=== PATIENT | male | born 1965 | race Hispanic/Latino ===

== ENCOUNTER 2017-09-21 17:24 | Inpatient (IN) | payer MEDICAID, OTHER ==
[2017-09-21 17:24] VITALS: BMI 35.3
[2017-09-21 18:20] LABS: BASO # 0.1 K/uL (0.0-0.2); BASO % 1.1 % (0.0-2.0); EOS # 0.1 K/uL (0.0-0.7); EOS % 1.1 % (0.0-4.0); HEMOGLOBIN 16.1 g/dL (12.0-18.0); LYMPH # 2.8 K/uL (1.0-4.3); LYMPH % 27.5 % (20.0-40.0); MEAN CELL VOLUME 90.8 fl (80.0-94.0); MEAN CORPUSCULAR HEMOGLOBIN 29.8 pg (27.0-31.0); MEAN CORPUSCULAR HGB CONC 32.9 g/dL (33.0-37.0); MEAN PLATELET VOLUME 8.9 fl (7.2-11.7); MONO # 0.9 K/uL (0.0-0.8); MONO % 9.3 % (0.0-10.0); NEUT # 6.2 K/uL (1.8-7.0); NRBC % 0.3 % (0.0-0.0); RBC 5.38 Mil/uL (4.40-5.90); RED CELL DISTRIBUTION WIDTH 13.9 % (11.5-14.5); WHITE BLOOD COUNT 10.1 K/uL (4.8-10.8)
[2017-09-21 18:26] LABS: SQUAMOUS EPITHIAL < 1 /hpf (0-5); URINE BACTERIA RARE (<OCC); URINE BILIRUBIN NEGATIVE (NEGATIVE); URINE BLOOD SMALL (NEGATIVE); URINE CLARITY CLEAR (Clear); URINE COLOR STRAW (YELLOW); URINE GLUCOSE (UA) NEG (Normal); URINE LEUKOCYTE ESTERASE NEG Leu/uL (Negative); URINE NITRATE NEGATIVE (NEGATIVE); URINE PROTEIN NEGATIVE (NEGATIVE); URINE UROBILINOGEN 0.2-1.0 mg/dL (0.2-1.0)
[2017-09-21 18:28] LABS: ALBUMIN 4.8 g/dL (3.5-5.0); ALT/SGPT 42 U/L (21-72); AST/SGOT 26 U/L (17-59); BLOOD UREA NITROGEN 25 mg/dl (9-20); CALCIUM 9.9 mg/dL (8.4-10.2); GFR AFRICAN-AMERICAN > 60; GFR NON-AFRICAN AMERICAN > 60
--- NOTE | 2017-09-21 18:40 | ED PDOC ---
HPI: Psych/Substance Abuse Time Seen by Provider: 09/21/17 17:30 Chief Complaint (Nursing): Psychiatric Evaluation Chief Complaint (Provider): Psychiatric Evaluation History Per: Patient History/Exam Limitations: clinical condition (profound psychiatric disease) Onset/Duration Of Symptoms: Days (x1) Current Symptoms Are (Timing): Still Present Additional History Per: Long-Term Additional Complaint(s): 51 year old male with a past medical history of bipolar disorder presents to the emergency department for psychiatric evaluation. Patient [facility] living in a [facility] for several years. Today he became upset and agitated after an argument with nursing staff, and threw food at them. In the ER patient reports feeling upset and depressed. Denies any physical complaint such as fever, cough, abdominal pain, or headache. PMD: Non H provider Past Medical History Reviewed: Historical Data, Nursing Documentation, Vital Signs Vital Signs: Last Vital Signs Temp 98.7 F 09/21/17 17:32 Pulse 100 H 09/21/17 17:32 Resp 16 09/21/17 17:32 BP 140/91 H 09/21/17 17:32 Pulse Ox 100 09/21/17 17:32 - Medical History PMH: Bipolar Disorder, Depression Denies: Anxiety, Diabetes, Hepatitis, HIV, HTN, Personality Disorder, Schizophrenia, Seizures, Sexually Transmitted Disease - Family History Family History: States: Hypertension - Social History Current smoker - smoking cessation education provided: Yes Alcohol: None Drugs: Denies - Immunization History Hx Tetanus Toxoid Vaccination: No Hx Influenza Vaccination: No Hx Pneumococcal Vaccination: No - Home Medications Home Medications: Ambulatory Orders Medication Instructions Recorded Ergocalciferol [Vitamin D2] 400 iu PO DAILY #0 tab 01/18/15 FLUoxetine [Prozac] 30 mg PO DAILY #0 cap 01/18/15 Nicotine 14 mg/24 hr [Nicotine 14 mg TD DAILY #0 patch 01/18/15 Transdermal System] hydrOXYzine Pamoate [Vistaril] 50 mg PO Q8 PRN #0 cap 01/18/15 traZODone [trazODONE HYDROCHLORIDE] 50 mg PO PRN PRN #0 tab 01/18/15 - Allergies Allergies/Adverse Reactions: Allergies Allergy/AdvReac Type Severity Reaction Status Date / Time No Known Allergies Allergy Verified 10/25/14 17:23 Review of Systems ROS Statement: Except As Marked, All Systems Reviewed And Found Negative Constitutional: Negative for: Fever Respiratory: Negative for: Cough Gastrointestinal: Negative for: Abdominal Pain Neurological: Negative for: Headache Psych: Positive for: Depression, Other (Hearing voices) Physical Exam - Reviewed Nursing Documentation Reviewed: Yes Vital Signs Reviewed: Yes - Physical Exam Appears: Positive for: Non-toxic, No Acute Distress Head Exam: Positive for: ATRAUMATIC, NORMAL INSPECTION, NORMOCEPHALIC Skin: Positive for: Normal Color, Warm, Dry Eye Exam: Positive for: EOMI, Normal appearance, PERRL Neck: Positive for: Normal, Painless ROM, Supple Cardiovascular/Chest: Positive for: Regular Rate, Rhythm. Negative for: Murmur Respiratory: Positive for: Normal Breath Sounds. Negative for: Accessory Muscle Use, Respiratory Distress Gastrointestinal/Abdominal: Positive for: Normal Exam, Soft. Negative for: Tenderness Extremity: Positive for: Normal ROM. Negative for: Pedal Edema, Deformity Neurologic/Psych: Positive for: Alert, Oriented, Mood/Affect (poor insight and cognition), Other (somewhat pressured speech) - Laboratory Results Result Diagrams: 09/21/17 19:07 09/21/17 18:07 - ECG O2 Sat by Pulse Oximetry: 100 (RA) Pulse Ox Interpretation: Normal Medical Decision Making Medical Decision Making: Time: 17:47 Initial Plan: Patient completed crisis evaluation, and meets criteria for inpatient psychiatric stabilization. Will obtain blood work and chest x-ray for medical clearance. 720p labs reviewed and clinically unremarkable CXR no acute infiltrate Medically stable for [facility] admission at this time Scribe Attestation: Documented by Joselin Ricketts, acting as a scribe for Ruy Noe III, DO Provider Scribe Attestation: All medical record entries made by the Scribe were at my direction and personally dictated by me. I have reviewed the chart and agree that the record accurately reflects my personal performance of the history, physical exam, medical decision making, and the department course for this patient. I have also personally directed, reviewed, and agree with the discharge instructions and disposition. Disposition - Clinical Impression Clinical Impression: Bipolar 1 disorder - Patient ED Disposition Is Patient to be Admitted: Yes Counseled Patient/Family Regarding: Studies Performed - Disposition Disposition Time: 19:20 Condition: STABLE Forms: Liquid Bronze (Persian) - Pt Status Changed To: Hospital Disposition Of: Inpatient - Admit Certification Admit to Inpatient:: After my assessment, the patient will require hospitalization for at least two midnights. This is because of the severity of symptoms shown, intensity of services needed, and/or the medical risk in this patient being treated as an outpatient. - POA Present On Arrival: None
[2017-09-21 18:42] LABS: ALB/GLOB RATIO 1.3 (1.0-2.1)
[2017-09-21 20:04] VITALS: O2SAT 97
[2017-09-21 20:07] LABS: PARTIAL THROMBOPLASTIN TIME 39.8 Seconds (25.6-37.1); PROTHROMBIN TIME 11.6 Seconds (9.8-13.1)
[2017-09-21] MEDS ORDERED: Alum-Mag Hydrox-Simethicone Susp (30 mL) PO PRN (20:19)
[2017-09-21] MEDS ORDERED: Magnesium Hydroxide Susp 30 ml UD PO PRN (20:19)
[2017-09-21] MEDS ORDERED: DiphenhydrAMINE 50 mg/ml Inj IM PRN (20:19)
[2017-09-21] MEDS ORDERED: Bismuth Subsalicylate 262 mg/15 ml Sus (240 ml) PO PRN (20:20)
[2017-09-21 20:31] LABS: BARBITURATES, UR NEGATIVE (NEGATIVE); BENZODIAZEPINES, UR NEGATIVE (NEGATIVE); OPIATES, UR NEGATIVE (NEGATIVE); PHENCYCLIDINE, UR NEGATIVE (NEGATIVE)
--- NOTE | 2017-09-22 02:59 | PCM.BM ---
<Rboert Fernandez P - Last Filed: 09/22/17 02:57> Treatment Plan Problems - Problems identified on initial assessmt Agitated/aggressive behavior Date Initiated: 09/21/17 Time Initiated: 20:45 Assessment reference: NA Status: Active Treatment assets and liabiliti Patient Assests: cooperative, physically healthy, negotiates basic needs Patient Liabilities: medical problems - Milieu Protocol Maintain good personal hygiene: daily Encourage regular showers, daily Remind patient to perform daily oral care Conduct patient checks and document Observation sheet: Q15 minutes Maintain personal safety: every shift Educate patient to report safety concerns to staff, every shift Monitor environment for contraband/sharps Medication safety: Monitor for expected outcome, potential side effects: every shift, Assess barriers to learning: every shift, Assess readiness for medication education: every shift <Deborah Ferrara - Last Filed: 09/22/17 10:40> - Diagnosis (1) Schizoaffective disorder Status: Acute Interventions: Medication management, Psychoeducation, Individual and group therapy 09/22/17 10:40 <Suzan Parks M - Last Filed: 09/22/17 14:00> Family Contact Family contact: Patient agrees to contact, Telephone contact initiated by staff Family contact name: Mrs. Haley ( Sister) Family contacted how many times per week?: 2 Family contact comment: [phone] - Outside [facility] Care involvment: Information-sharing Agency contact name: Dr. Caron MD and Dr. Kasey Yancey, Ph.D Agency contact number: [phone] - Goals for Treatment Patient goals for treatment: Pt to be encouraged to attend activity and clinical groups 3-5x per week to identify at least 2 contributing factors to increased agitation, irritability, and aggression. Psycho-education to be provided to patient/family regarding benefits of medications and treatment adherence. Pt to be encouraged to participate in group milieu to develop effective coping skills to reduce aggression and reduce psychiatric hospitalizations. Coordinate discharge resource needs by providing referral for psychiatric treatment follow up in the community. Discharge/Continuing Care - Education Needs Education Needs: Family Medication, Family Diagnosis/Disease Process, Family Coping Skills, Family Anger Management skills, Family Community resources, Family Nutrition, Family Uses of Medical Equipment, Family Personal Hygiene/ Grooming, Family Aftercare Safety Plan, Patient Medication, Patient Diagnosis/ Disease Process, Patient Coping Skills, Patient Anger Management skills, Patient Community resources, Patient Nutrition, Patient Uses of Medical Equipment, Patient Personal Hygiene/Grooming, Patient Aftercare Safety Plan - Discharge Discharge Criteria: Tolerates medication w/o severe side effects, Free of agitation, Normal sleep pattern, Ability to care for self, Reduction of target symptoms Discharge to:: Shelter - Additional Comments 09/22/17 13:59 Pt seen and discussed in team meeting. Reason for admission reviewed and discussed. Pt's social and medical issues reviewed and discussed. Pt's medications reviewed. Pt provided data analyst report writer with verbal authorization to contact his sister, Mrs. Haley for collateral information. tx plan reviewed and pt verbalized understanding and agreement. SW to continue to follow case. - Treatment Team Participation Discussed with Family/SO: No (Will be informed via telephone) Was Patient/Family/SO present at Treatment Team Meeting: Yes
[2017-09-22] MEDS: Multivitamin With Minerals Tab PO SCH (08:47)
[2017-09-22] MEDS ORDERED: MULTIVITAMIN THERAPEUTIC PO SCH (09:00)
--- NOTE | 2017-09-22 10:14 | RAD ---
HISTORY: r/o infiltrate COMPARISON: No prior. FINDINGS: LUNGS: No active pulmonary disease. PLEURA: No significant pleural effusion identified, no pneumothorax apparent. CARDIOVASCULAR: Normal. OSSEOUS STRUCTURES: Thoracic spondylosis. Prominent anterior coastocartilaginous junctional calcifications -1st rib VISUALIZED UPPER ABDOMEN: Normal. OTHER FINDINGS: None. IMPRESSION: No infiltrate perceived
--- NOTE | 2017-09-22 10:43 | PCM.PSYCH ---
Initial Psychiatric Evaluation - Initial Psychiatric Evaluation Type of Admission: Voluntary Legal Status: Capacity Chief Complaint (in patient's own words): "I got into an altercation." Patient's Reaction to Hospitalization: 51 yo male w/ h/o schizoaffective disorder, sent from [facility] for worsening agitation and aggression. As per [facility], patient was verbally aggressive towards staff and other patients, escalated and threw a banana at a nurse. residential staff also reports that the patient has been increasing paranoid, believing that he is not receiving good care because of his race. At the time of the evaluation, patient is calm and cooperative. He acknowledges that her became aggressive and states that he becomes irritable at times. He denies currently feeling depressed or anxious. Denies acute AH/VH/SI/HI. PPHx: History of multiple past psychiatric admissions, including [facility] and [place]. Currently in tx w/ Dr. Reardon and Dr. Yancey. On Prozac 20 mg PO Daily and Risperdal 0.5 mg PO Q12. 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 Denies drugs/etoh. Smokes 6 cig/ day (refused smoking cessation from marine underwriter). Current Medications: Active Medications Generic Name Dose Route Start Last Admin Trade Name Freq PRN Reason Stop Dose Admin Acetaminophen 650 mg 09/21/17 20:19 Tylenol 325mg Tab PO Q4 PRN pain level 4-7 Al Hydrox/Mg Hydrox/Simethicone 30 ml 09/21/17 20:19 Maalox Plus 30 Ml PO Q4 PRN Dyspepsia Atorvastatin Calcium 20 mg 09/21/17 22:00 09/21/17 21:20 Lipitor PO 20 mg HS MARTA Administration Bacitracin 1 applic 09/22/17 09:00 Bacitracin Oint TOP BID MARTA Bismuth Subsalicylate 524 mg 09/21/17 20:20 Pepto-Bismol PO Q4 PRN Diarrhea Diphenhydramine HCl 50 mg 09/21/17 20:19 Benadryl IM Q6 PRN Extrapyramidal S/S Unable PO Diphenhydramine HCl 50 mg 09/21/17 20:19 Benadryl PO Q6 PRN Extrapyramidal Symptoms Diphenhydramine HCl 50 mg 09/21/17 20:20 Benadryl PO HS PRN Sleep Fluoxetine HCl 20 mg 09/22/17 09:00 09/22/17 08:46 Prozac PO 20 mg DAILY MARTA Administration Haloperidol 5 mg 09/21/17 20:19 Haldol PO Q4 PRN Agitation Haloperidol Lactate 5 mg 09/21/17 20:19 Haldol IM Q4 PRN Agitation, Unable to Take PO Ibuprofen 400 mg 09/21/17 20:53 Motrin Tab PO Q6 PRN moderate pain level 7-10 Lorazepam 2 mg 09/21/17 20:19 Ativan IM Q4 PRN Anxiety/Agitation,Unable PO Lorazepam 2 mg 09/21/17 20:19 Ativan PO Q4 PRN Anxiety/Agitation Magnesium Hydroxide 30 ml 09/21/17 20:19 Milk Of Magnesia PO HS PRN Constipation Multivitamins/Minerals 1 tab 09/22/17 09:00 09/22/17 08:47 Therapeutic-M Tab PO 1 tab DAILY MARTA Administration Risperidone 0.5 mg 09/23/17 09:00 Risperdal Tab PO DAILY MARTA Risperidone 1 mg 09/22/17 22:00 Risperdal Tab PO HS MARTA Past Psychiatric History - Past Psychiatric History Previous Treatment History: Inpatient Pertinent Medical Hx (Current Medical&Sleep Prob, Allergies): Allergies Allergy/AdvReac Type Severity Reaction Status Date / Time No Known Allergies Allergy Verified 10/25/14 17:23 Atorvastatin [Lipitor] 20 mg PO HS 09/21/17 Bacitracin Ointment [Bacitracin] 1 appl TOP BID 09/21/17 FLUoxetine [Prozac] 20 mg PO DAILY 09/21/17 Ibuprofen [Motrin Tab] 400 mg PO Q6 PRN 09/21/17 Multivitamin Therapeutic Tab [Thera Tab] 1 tab PO DAILY 09/21/17 Risperidone [Risperdal] 0.5 mg PO BID 09/21/17 Review of Systems - Psychiatric Psychiatric: As Per HPI, Irritability, Mood Swings, Paranoia Mental Status Examination - Personal Presentation Personal Presentation: Looks stated age - Affect Affect: Constricted - Motor Activity Motor Activity: Calm - Reliability in Providing Information Reliability in Providing Information: Fair - Speech Speech: Coherent - Mood Mood: Neutral - Formal Thought Process Formal Thought Process: Paranoia - Hallucinations/Delusions Additional comments: No AH/VH - Obsessions/Compulsions Obsessions: No Compulsions: No - Cognitive Functions Orientation: Person, Place, Situation, Time Sensorium: Alert Judgement: Intact, as evidence by: Insight regarding need for hospitalization Memory: Recent intact, as evidence by: Ability to recall events of the day - Risk Risk: Other (Aggression) - Strength & Assets Inventory Strength & Assets Inventory: Cooperative DSM 5 DX - DSM 5 DSM 5 Diagnosis: Schizoaffective Disorder - Recommended/Plan of Treatment Treatment Recommendations and Plan of Treatment: Schizoaffective disorder; patient needs acute hospitalization for treatment and safety. -Admit to psychiatry unit -Individual and group therapy -Podiatry consult for R foot ulcer -Medicine consult -Increase Risperdal to 0.5 mg PO AM/ 1 mg PO HS; will titrate as clinically appropriate -Continue Prozac 20 mg PO Daily -Disposition planning -Patient declined smoking cessation treatment Projected ELOS: 3-7 days Discharge Plan and Discharge Criteria: Discharge the patient when he is psychiatrically stable - Smoking Cessation Smoking Cessation Initiated: No Reason for not providing: Patient declined
--- NOTE | 2017-09-22 12:19 | CARD ---
APPROVED REPORT EKG Measurement Heart [id number] <Conclusion> Normal sinus rhythm Incomplete right bundle branch block Borderline ECG
[2017-09-22] MEDS: Bacitracin OINT 15GM TOP SCH (21:17)
[2017-09-23] MEDS: Multivitamin With Minerals Tab PO SCH (08:36)
[2017-09-23] MEDS: Bacitracin OINT 15GM TOP SCH ×2 (08:38→17:40)
--- NOTE | 2017-09-23 08:52 | CP.PCM.CON ---
History of Present Illness - History of Present Illness History of Present Illness: 51 y/o male seen at bedside in psych unit for podiatric consultation of right foot diabetic ulcer. Patient states he was diagnosed with diabetes 1 year ago and has been working hard to control it since. States he noticed this ulceration four months ago, initially beginning as a callus. States he is seen regularly by a operator weapon locating radar at [facility] where he resides. Admits to pain in the ulcer when he applies pressure/walks on it. Denies any history of other foot ulcerations or foot infections. States he has never taken antibiotics for this ulcer. Denies seeing any pus or having any foot swelling or redness surrounding the ulcer. Denies F/C/N/V/CP/SOB. PMH: DM, bipolar disorder, schizophrenia PSH: appendectomy, hernia repair All: NKDA Social: denies EtOH; 2 cigs/day; denies illicit drug use Fam Hx: Mother from DM; father hx of HTN Review of Systems - Review of Systems All systems: reviewed and no additional remarkable complaints except (per HPI) Past Patient History - Infectious Disease Hx of Infectious Diseases: None - Tetanus Immunizations Tetanus Immunization: Unknown - Past Social History Alcohol: None Drugs: Denies - CARDIAC Hx Hypercholesterolemia: Yes - PULMONARY Hx Tuberculosis: No - NEUROLOGICAL Hx Seizures: No - ENDOCRINE/METABOLIC Hx Diabetes Mellitus Type 1: Yes - HEMATOLOGICAL/ONCOLOGICAL Hx Human Immunodeficiency Virus (HIV): No - MUSCULOSKELETAL/RHEUMATOLOGICAL Hx Falls: No - GASTROINTESTINAL Hx Gastrointestinal Disorders: No - GENITOURINARY/GYNECOLOGICAL Hx Sexually Transmitted Disorders: No - PSYCHIATRIC Hx Bipolar Disorder: Yes Hx Substance Use: No - SURGICAL HISTORY Hx Appendectomy: Yes (age 18) Hx Herniorrhaphy: Yes (Inguinal hernia repair 2012) - ANESTHESIA Hx Anesthesia: Yes Hx Anesthesia Reactions: No Hx Malignant Hyperthermia: No Meds Allergies/Adverse Reactions: Allergies Allergy/AdvReac Type Severity Reaction Status Date / Time No Known Allergies Allergy Verified 10/25/14 17:23 - Medications Medications: Current Medications Acetaminophen (Tylenol 325mg Tab) 650 mg PO Q4 PRN PRN Reason: pain level 4-7 Al Hydrox/Mg Hydrox/Simethicone (Maalox Plus 30 Ml) 30 ml PO Q4 PRN PRN Reason: Dyspepsia Atorvastatin Calcium (Lipitor) 20 mg PO HS [facility] Last Admin: 09/22/17 21:16 Dose: 20 mg Bacitracin (Bacitracin Oint) 1 applic TOP BID [facility] Last Admin: 09/23/17 08:38 Dose: 1 applic Bismuth Subsalicylate (Pepto-Bismol) 524 mg PO Q4 PRN PRN Reason: Diarrhea Diphenhydramine HCl (Benadryl) 50 mg IM Q6 PRN PRN Reason: Extrapyramidal S/S Unable PO Diphenhydramine HCl (Benadryl) 50 mg PO Q6 PRN PRN Reason: Extrapyramidal Symptoms Diphenhydramine HCl (Benadryl) 50 mg PO HS PRN PRN Reason: Sleep Fluoxetine HCl (Prozac) 20 mg PO DAILY [facility] Last Admin: 09/23/17 08:36 Dose: 20 mg Haloperidol (Haldol) 5 mg PO Q4 PRN PRN Reason: Agitation Haloperidol Lactate (Haldol) 5 mg IM Q4 PRN PRN Reason: Agitation, Unable to Take PO Ibuprofen (Motrin Tab) 400 mg PO Q6 PRN PRN Reason: moderate pain level 7-10 Lorazepam (Ativan) 2 mg IM Q4 PRN PRN Reason: Anxiety/Agitation,Unable PO Lorazepam (Ativan) 2 mg PO Q4 PRN PRN Reason: Anxiety/Agitation Magnesium Hydroxide (Milk Of Magnesia) 30 ml PO HS PRN PRN Reason: Constipation Multivitamins/Minerals (Therapeutic-M Tab) 1 tab PO DAILY [facility] Last Admin: 09/23/17 08:36 Dose: 1 tab Risperidone (Risperdal Tab) 0.5 mg PO DAILY [facility] Last Admin: 09/23/17 08:39 Dose: 0.5 mg Risperidone (Risperdal Tab) 1 mg PO HS [facility] Last Admin: 09/22/17 21:16 Dose: 1 mg Physical Exam - Constitutional Appears: Well, Non-toxic, No Acute Distress - Extremities Exam Additional comments: Lower extremity focused exam: Vasc: DP/PT pulses palpable 2/4 B/L. Temperature gradient warm to cool B/L. No pedal edema noted. CFT < 3 sec to all digits Derm: 0.7cm x 0.9cm superficial ulceration noted to right foot sub met 3. Hyperkeratotic borders noted with yellow skin discoloration. Overlying dry blood noted to ulceration bed. Proximal to wound there is mild hematoma noted. No active drainage, purulence, malodor, tunneling or undermining. Neuro: Protective sensation grossly intact Ortho: Mild tenderness to palpation of sub met 3 ulceration to right foot - Neurological Exam Neurological exam: Alert, Oriented x3 - Psychiatric Exam Psychiatric exam: Normal Affect, Normal Mood Results - Vital Signs Recent Vital Signs: Last Vital Signs Temp 98.1 F 09/23/17 05:56 Pulse 68 09/23/17 05:56 Resp 18 09/23/17 05:56 BP 121/76 09/23/17 05:56 Pulse Ox 97 09/21/17 19:50 - Labs Result Diagrams: 09/21/17 19:07 09/21/17 18:07 Labs: Laboratory Results - last 24 hr 09/22/17 09/22/17 09/22/17 07:01 07:01 08:53 POC Glucose (mg/dL) Hemoglobin A1c 5.6 Vitamin B12 506 RPR Nonreactive 09/23/17 05:50 POC Glucose (mg/dL) 77 Hemoglobin A1c Vitamin B12 RPR Assessment & Plan - Assessment and Plan (Free Text) Assessment: 51 y/o male with right foot superficial diabetic ulcer Plan: Pt seen and evaluated at bedside Discussed plan with attending Dr. Cuevas Chart, labs and vitals reviewed- afebrile, no leukocytosis present Wound does not appear clinically infected at this time Dressed ulceration on right foot with bacitracin and DSD Continue ambulation with surgical shoe with cut out to offload pressure induced diabetic ulceration Podiatry will continue to follow while in house Thank you for this consult
[2017-09-23 12:46] LABS: FOLATE 16.4 ng/mL
[2017-09-24] MEDS: Bacitracin OINT 15GM TOP SCH ×2 (08:29→18:11)
[2017-09-24] MEDS: Multivitamin With Minerals Tab PO SCH (08:30)
--- NOTE | 2017-09-24 17:28 | PCM.PYCHPN ---
Psychiatric Progress Note - Psychiatric Progress Note Patient seen today, length of contact: late note for [id number] reviewed case discussed with team Patient Chief Complaint: was upset at [facility] became excited. admitted from [place] to [facility] for agression. hx shizoaffective disorder Problems Identified/Issues Discussed: alteration in mood and cognition -hx of schizoaffective Medical Problems: per chart -pt being followed by hospitalist Diagnostic Results: per psychiatry per medicine per nursing per social work DSM 5 Symptoms Update: alteration in mood, coping, cognition, aggression Medication Change: No Medical Record Reviewed: Yes Consults ordered or reviewed: pt. being followed by hospitalist Mental Status Examination - Cognitive Function Orientation: Person, Place, Situation, Time Attention: WNL Concentration: WNL Association: Loose Fund of Knowledge: WNL Decription of patient's judgement and insights: impaired - Mood Mood: Neutral - Affect Affect: Constricted - Formal Thought Process Formal Thought Process: Paranoia - Homicidal Ideation Homicidal Ideation: No Goal/Treatment Plan - Goal/Treatment Plan Progress Toward Problem(s) and Goals/Treatment Plan: inpt. milieu vitals/observation and per clinical status pt. being followed by hospitalist seen in room laying in bed-encourage oob to chair, social activities etc discharge planning in progress Estimated Date of D/C: 10/06/17 - Smoking Cessation Smoking Cessation Initiated: No
--- NOTE | 2017-09-24 17:40 | PCM.PYCHPN ---
Psychiatric Progress Note - Psychiatric Progress Note Patient seen today, length of contact: late note for [id number] reviewed case discussed with team Patient Chief Complaint: pt. is reported to be calmer, has been adherent with treatment, has been out of room today was upset at [facility] became excited. [facility] for [facility]ression. hx shizoaffective disorder Problems Identified/Issues Discussed: alteration in mood and cognition -hx of schizoaffective Medical Problems: per chart -pt being followed by hospitalist Diagnostic Results: per psychiatry per medicine per nursing per social work DSM 5 Symptoms Update: alteration in mood and cognition Medication Change: No Medical Record Reviewed: Yes Consults ordered or reviewed: hospitalist Mental Status Examination - Cognitive Function Orientation: Person, Place, Situation, Time Attention: WNL Concentration: WNL Association: Loose Fund of Knowledge: WNL Decription of patient's judgement and insights: impaired - Mood Mood: Neutral - Affect Affect: Constricted - Formal Thought Process Formal Thought Process: Paranoia - Homicidal Ideation Homicidal Ideation: No Goal/Treatment Plan - Goal/Treatment Plan Progress Toward Problem(s) and Goals/Treatment Plan: inpt. milieu vitals/observation and per clinical status pt. being followed by hospitalist seen in social area discharge planning in progress Estimated Date of D/C: 10/06/17 - Smoking Cessation Smoking Cessation Initiated: No Reason for not providing: pt. defers
[2017-09-25] MEDS: Multivitamin With Minerals Tab PO SCH (08:19)
[2017-09-25] MEDS: Bacitracin OINT 15GM TOP SCH ×2 (08:20→17:04)
[2017-09-26] MEDS: Multivitamin With Minerals Tab PO SCH (08:43)
[2017-09-26] MEDS: Bacitracin OINT 15GM TOP SCH ×2 (08:43→17:25)
--- NOTE | 2017-09-26 11:23 | PCM.PYCHPN ---
Psychiatric Progress Note - Psychiatric Progress Note Patient seen today, length of contact: late note for [id number] reviewed case discussed with team Patient Chief Complaint: feeling ok, no problems with rx, believes is beginning to get better-denies complaints of pain, dressings being changed by staff, no acute changes noted per staff ball of heel rt. foot reportedly developed ulcer-seen by podiatry. adherent with treatment, out of room with prompting. Problems Identified/Issues Discussed: alteration in mood and cognition -hx of schizoaffective Medical Problems: per chart -pt being followed by hospitalist Diagnostic Results: per psychiatry per medicine per nursing per social work Medication Change: No Medical Record Reviewed: Yes Consults ordered or reviewed: being followed by hospitalist and podiatry Mental Status Examination - Cognitive Function Orientation: Person, Place, Situation, Time Attention: WNL Concentration: WNL Association: Loose Fund of Knowledge: WNL Decription of patient's judgement and insights: impaired - Mood Mood: Neutral - Affect Affect: Constricted - Formal Thought Process Formal Thought Process: Paranoia - Homicidal Ideation Homicidal Ideation: No Goal/Treatment Plan - Goal/Treatment Plan Progress Toward Problem(s) and Goals/Treatment Plan: inpt. milieu vitals/observation and per clinical status pt. being followed by hospitalist and podiatry discharge planning in progress Estimated Date of D/C: 10/06/17 - Smoking Cessation Smoking Cessation Initiated: No Reason for not providing: defers
--- NOTE | 2017-09-26 11:27 | PCM.PYCHPN ---
Psychiatric Progress Note - Psychiatric Progress Note Patient seen today, length of contact: chart reviewed case discussed with team Patient Chief Complaint: feeling ok, no problems with rx, believes is beginning to get better-denies complaints of pain, dressings being changed by staff, no acute changes noted per staff ball of heel rt. foot reportedly developed ulcer-seen by podiatry. adherent with treatment, out of room with prompting. Problems Identified/Issues Discussed: alteration in mood and cognition -hx of schizoaffective Medical Problems: per chart -pt being followed by hospitalist Diagnostic Results: per psychiatry per medicine per nursing per social work DSM 5 Symptoms Update: alteration in mood, alteration in coping, alteration self care Medication Change: No Medical Record Reviewed: Yes Consults ordered or reviewed: pt being followed by hospitalist and podiatry Mental Status Examination - Cognitive Function Orientation: Person, Place, Situation, Time Attention: WNL Concentration: WNL Association: Loose Fund of Knowledge: WNL Decription of patient's judgement and insights: impaired - Mood Mood: Neutral - Affect Affect: Constricted - Formal Thought Process Formal Thought Process: Paranoia - Homicidal Ideation Homicidal Ideation: No Goal/Treatment Plan - Goal/Treatment Plan Progress Toward Problem(s) and Goals/Treatment Plan: inpt. milieu vitals/observation and per clinical status pt. being followed by hospitalist and podiatry discharge planning in progress Estimated Date of D/C: 10/06/17 - Smoking Cessation Smoking Cessation Initiated: No Reason for not providing: defers
[2017-09-27] MEDS: Bacitracin OINT 15GM TOP SCH ×2 (08:28→17:07)
[2017-09-27] MEDS: Multivitamin With Minerals Tab PO SCH (08:28)
--- NOTE | 2017-09-27 09:27 | CP.PCM.PN ---
Subjective - Date & Time of Evaluation Date of Evaluation: 09/27/17 Objective - Vital Signs/Intake and Output Vital Signs (last 24 hours): Temp Pulse Resp BP Pulse Ox 97.7 F 67 18 110/73 97 09/27/17 05:57 09/27/17 05:57 09/27/17 05:57 09/27/17 05:57 09/21/17 19:50 - Medications Medications: Current Medications Acetaminophen (Tylenol 325mg Tab) 650 mg PO Q4 PRN PRN Reason: pain level 4-7 Al Hydrox/Mg Hydrox/Simethicone (Maalox Plus 30 Ml) 30 ml PO Q4 PRN PRN Reason: Dyspepsia Atorvastatin Calcium (Lipitor) 20 mg PO HS [facility] Last Admin: 09/26/17 21:02 Dose: 20 mg Bacitracin (Bacitracin Oint) 1 applic TOP BID [facility] Last Admin: 09/27/17 08:28 Dose: 1 applic Bismuth Subsalicylate (Pepto-Bismol) 524 mg PO Q4 PRN PRN Reason: Diarrhea Diphenhydramine HCl (Benadryl) 50 mg IM Q6 PRN PRN Reason: Extrapyramidal S/S Unable PO Diphenhydramine HCl (Benadryl) 50 mg PO Q6 PRN PRN Reason: Extrapyramidal Symptoms Diphenhydramine HCl (Benadryl) 50 mg PO HS PRN PRN Reason: Sleep Fluoxetine HCl (Prozac) 20 mg PO DAILY [facility] Last Admin: 09/27/17 08:27 Dose: 20 mg Haloperidol (Haldol) 5 mg PO Q4 PRN PRN Reason: Agitation Haloperidol Lactate (Haldol) 5 mg IM Q4 PRN PRN Reason: Agitation, Unable to Take PO Ibuprofen (Motrin Tab) 400 mg PO Q6 PRN PRN Reason: moderate pain level 7-10 Lorazepam (Ativan) 2 mg IM Q4 PRN PRN Reason: Anxiety/Agitation,Unable PO Lorazepam (Ativan) 2 mg PO Q4 PRN PRN Reason: Anxiety/Agitation Lorazepam (Ativan) 2 mg IM Q4 PRN PRN Reason: Anxiety/Agitation,Unable PO Lorazepam (Ativan) 2 mg PO Q4 PRN PRN Reason: Anxiety/Agitation Magnesium Hydroxide (Milk Of Magnesia) 30 ml PO HS PRN PRN Reason: Constipation Multivitamins/Minerals (Therapeutic-M Tab) 1 tab PO DAILY [facility] Last Admin: 09/27/17 08:28 Dose: 1 tab Risperidone (Risperdal Tab) 0.5 mg PO DAILY [facility] Last Admin: 09/27/17 08:28 Dose: 0.5 mg Risperidone (Risperdal Tab) 1 mg PO HS [facility] Last Admin: 09/26/17 21:02 Dose: 1 mg - Labs Labs: 09/21/17 19:07 09/21/17 18:07 PT 11.6 Seconds (9.8-13.1) 09/21/17 19:15 INR 1.0 (0.9-1.2) 09/21/17 19:15 APTT 39.8 Seconds (25.6-37.1) H 09/21/17 19:15
--- NOTE | 2017-09-27 18:36 | PCM.PYCHPN ---
Psychiatric Progress Note - Psychiatric Progress Note Patient seen today, length of contact: chart reviewed case discussed with team Patient Chief Complaint: feeling ok, sometimes a little tired during the day, but generally beginning to feel a little better, staff report pt. is seen about unit during the day, adherence with treatment and free of notable aggression. denies complaints of pain. Problems Identified/Issues Discussed: alteration in mood and cognition -hx of schizoaffective disorder Medical Problems: per chart -pt being followed by hospitalist and podiatry Diagnostic Results: per psychiatry per medicine per nursing per social work DSM 5 Symptoms Update: improving mood, no agression Medication Change: Yes (change risperdal to 1.5mg po hs starting 09/28/17) Medical Record Reviewed: Yes Consults ordered or reviewed: pt being followed by hospitalist Mental Status Examination - Cognitive Function Orientation: Person, Place, Situation, Time Attention: WNL Concentration: WNL Association: Loose Fund of Knowledge: WNL Decription of patient's judgement and insights: impaired - Mood Mood: Neutral - Affect Affect: Broad, Constricted - Formal Thought Process Formal Thought Process: No Impairment - Homicidal Ideation Homicidal Ideation: No Goal/Treatment Plan - Goal/Treatment Plan Progress Toward Problem(s) and Goals/Treatment Plan: inpt. milieu vitals/observation and per clinical status will change risperdal 1.5mg po HS starting [id number] due to possible day time somnolence-get up slowly pt. being followed by hospitalist and podiatry discharge planning in progress Estimated Date of D/C: 10/01/17 - Smoking Cessation Smoking Cessation Initiated: No Reason for not providing: pt deferred
[2017-09-28 05:50] VITALS: BP 114/72; PULSE 66; RESP 18; TEMP 97.1
[2017-09-28] MEDS: Bacitracin OINT 15GM TOP SCH (08:31)
[2017-09-28] MEDS: Multivitamin With Minerals Tab PO SCH (08:32)
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
== END 2017-09-28 15:20 | disposition home or self-care (01) | DRG 430 ==
LOC: H.ER 17:24 → H.ERHOLD 19:34 → H.STEP 20:10
PROVIDERS: ADMIT Psychiatry & Neurology Psychiatry; ATTEND Psychiatry & Neurology Psychiatry
PROC: GZ51ZZZ Individual Psychotherapy, Behavioral (ICD-10-PCS; principal; 2017-09-21)
DX: F25.9 Schizoaffective disorder, unspecified (principal); E11.621 Type 2 diabetes mellitus with foot ulcer; F31.9 Bipolar disorder, unspecified; I10 Essential (primary) hypertension; Z79.4 Long term (current) use of insulin; Z79.899 Other long term (current) drug therapy; Z83.3 Family history of diabetes mellitus; Z90.49 Acquired absence of other specified parts of digestive tract; E78.00 Pure hypercholesterolemia, unspecified; E78.5 Hyperlipidemia, unspecified; F17.200 Nicotine dependence, unspecified, uncomplicated